=== PATIENT | male | born 1960 | race Caucasian/White ===

== ENCOUNTER 2020-02-28 13:14 | Inpatient (IN) ==
[2020-02-28] MEDS ORDERED: *HR* Promethazine 25 MG/ML VIAL IVP PRN (13:41)
[2020-02-28] MEDS ORDERED: Ondansetron 4 MG/2 ML VIAL IVP PRN ×2 (13:41→20:09)
[2020-02-28] MEDS ORDERED: *HR* Labetalol 20 MG/4 ML SYRINGE IVP PRN (13:41)
[2020-02-28] MEDS ORDERED: *HR* OxyCODONE Immed Rel 5 MG TABLET PO PRN (13:41)
[2020-02-28] MEDS ORDERED: CeFAZolin Syr 2,000MG/20 ML 2,000 MG/20 ML SYRINGE IVPB ONE (13:47)
[2020-02-28] MEDS ORDERED: *HR* FentaNYL (PF) 100 MCG/2 ML VIAL ONE (15:52)
[2020-02-28] MEDS ORDERED: *HR* Propofol 200 MG/20 ML VIAL IVP ONE (15:52)
[2020-02-28] MEDS ORDERED: *HR* Midazolam HCl 2 MG/2 ML VIAL ONE (15:52)
[2020-02-28] MEDS ORDERED: Lidocaine -MPF 2% 2 ML VIAL ONE (15:55)
[2020-02-28] MEDS ORDERED: Vancomycin 1,000 MG VIAL ONE (16:28)
[2020-02-28] MEDS ORDERED: Ethanol\\Acetic Acid\\Na Ace\\Ben 1,000 ML IRRIG.SOLN IR ONE (16:28)
[2020-02-28] MEDS ORDERED: Ropivacaine/PF 0.5% 30 ML VIAL ONE (16:38)
[2020-02-28] MEDS ORDERED: Dexamethasone 4 MG/ML VIAL ONE (17:14)
[2020-02-28] MEDS ORDERED: Ondansetron 4 MG/2 ML VIAL ONE (17:14)
[2020-02-28] MEDS ORDERED: *HR* Enoxaparin 30 MG/0.3 ML SYRINGE SQ SCH (18:00)
[2020-02-28] MEDS: *HR* HYDROmorphone (PF) 1 MG/ML SYRINGE IVP PRN ×4 (18:24→18:46)
[2020-02-28 18:31] LABS: Hematocrit 41.3 % (37.5-50.1); Hemoglobin 14.1 g/dL (12.9-16.9)
[2020-02-28] MEDS ORDERED: D5% in Water 1,000 ML IVC PRN (20:09)
[2020-02-28] MEDS ORDERED: Ringers Solution, Lactated 1,000 ML IVC SCH (20:09)
[2020-02-28] MEDS ORDERED: Dextrose Gel 15 GM/37.5 ML TUBE PO PRN ×2 (20:09)
[2020-02-28] MEDS ORDERED: Sennosides 8.6 MG TABLET PO PRN (20:09)
[2020-02-28] MEDS ORDERED: Insulin LISPRO 300 UNITS/3 ML VIAL SQ SCH ×2 (20:09→21:00)
[2020-02-28] MEDS ORDERED: MOM Conc 10 ML UD.LIQ PO PRN (20:09)
[2020-02-28] MEDS ORDERED: *HR* Dextrose 50 % in Water (Vial) 50 ML VIAL IVP PRN (20:09)
[2020-02-28] MEDS: Insulin LISPRO 300 UNITS/3 ML VIAL SQ SCH (20:55)
[2020-02-29] MEDS ORDERED: CeFAZolin 2 GM/120 ML BAG IVPB SCH
[2020-02-29 04:19] LABS: BUN/Creatinine Ratio 19 (6-26); Blood Urea Nitrogen 15 mg/dL (8-23); Carbon Dioxide 23 mEq/L (23-29); Chloride 106 mEq/L (98-107); Glucose 187 mg/dL (70-105); Osmolality,Calculated 292 (280-300); Potassium 4.2 mEq/L (3.5-5.1); Sodium 138 mEq/L (136-145); eGFR For African Americans > 60 (> 60); eGFR For Non-African Americans > 60 (> 60)
[2020-02-29 04:24] LABS: Hematocrit 45.8 % (37.5-50.1); Hemoglobin 15.5 g/dL (12.9-16.9)
[2020-02-29] MEDS ORDERED: *HR* Enoxaparin 30 MG/0.3 ML SYRINGE SQ SCH (06:00)
[2020-02-29] MEDS: Insulin LISPRO 300 UNITS/3 ML VIAL SQ SCH (09:54)
[2020-02-29 10:38] VITALS: BP 116/74
[2020-02-29] MEDS ORDERED: *HR* OxyCODONE Immed Rel 5 MG TABLET PO PRN (10:47)
== END 2020-02-29 12:56 | disposition home or self-care (01) | DRG 483 ==
LOC: SAMDAY 13:14 → 3NENU 19:56
PROVIDERS: ADMIT Orthopaedic Surgery; ATTEND Orthopaedic Surgery

== ENCOUNTER 2021-01-25 06:26 | Observation (INO) ==
[2021-01-25] MEDS ORDERED: Ondansetron ODT 4 MG TAB.RAPDIS SL ONE (06:38)
[2021-01-25] MEDS ORDERED: *HR* OxyCODONE Immed Rel 5 MG TABLET PO PRN (06:38)
[2021-01-25] MEDS ORDERED: Acetaminophen IV 1,000 MG/100 ML BAG IVPB PRN (06:38)
[2021-01-25] MEDS ORDERED: *HR* FentaNYL (PF) 100 MCG/2 ML VIAL IVP PRN (06:38)
[2021-01-25] MEDS ORDERED: *HR* Meperidine 25 MG/ML SYRINGE IVP PRN (06:38)
[2021-01-25] MEDS ORDERED: *HR* HYDROmorphone PF 0.5 MG/0.5 ML SYRINGE IVP PRN (06:38)
[2021-01-25] MEDS ORDERED: CeFAZolin Syr 2,000MG/20 ML 2,000 MG/20 ML SYRINGE IVPB ONE (06:49)
[2021-01-25] MEDS ORDERED: Ringers Solution, Lactated 1,000 ML IVC SCH (07:00)
[2021-01-25] MEDS ORDERED: Lidocaine -MPF 4% 5 ML AMPUL ONE (07:12)
[2021-01-25] MEDS ORDERED: Sugammadex Sodium 200 MG/2 ML VIAL IV ONE (07:12)
[2021-01-25] MEDS ORDERED: *HR* Rocuronium Bromide 50 MG/5 ML VIAL ONE ×2 (07:12→08:37)
[2021-01-25] MEDS ORDERED: Ondansetron 4 MG/2 ML VIAL ONE (07:12)
[2021-01-25] MEDS ORDERED: Lidocaine -MPF 2% 2 ML VIAL ONE (07:12)
[2021-01-25] MEDS ORDERED: *HR* FentaNYL (PF) 100 MCG/2 ML VIAL ONE (07:17)
[2021-01-25] MEDS ORDERED: *HR* Propofol 200 MG/20 ML VIAL IVP ONE (07:17)
[2021-01-25] MEDS ORDERED: *HR* Remifentanil 1 MG VIAL IVP ONE (07:18)
[2021-01-25] MEDS ORDERED: *HR* Phenylephrine 10 MG/ML VIAL ONE (07:18)
[2021-01-25] MEDS ORDERED: *HR* Midazolam HCl 2 MG/2 ML VIAL ONE (07:18)
[2021-01-25] MEDS ORDERED: Polymyxin B Sulfate 500,000 UNIT, Sodium Chloride IRRigation 1,000 ML IR ONE (07:45)
[2021-01-25] MEDS ORDERED: *HR* HYDROMORPHONE 2 MG/ML VIAL ONE (10:46)
[2021-01-25] MEDS: *HR* Midazolam HCl 2 MG/2 ML VIAL IVP PRN ×2 (11:37→12:08)
[2021-01-25] MEDS ORDERED: Ondansetron 4 MG/2 ML VIAL IVP PRN (12:55)
[2021-01-25] MEDS ORDERED: Acetaminophen 325 MG TABLET PO PRN (12:55)
[2021-01-25] MEDS ORDERED: Naloxone 0.4 MG/ML INJ IVP PRN (12:55)
[2021-01-25] MEDS: *HR* OxyCODONE Immed Rel 5 MG TABLET PO PRN ×3 (13:11→23:09)
[2021-01-25] MEDS: CeFAZolin 2 GM/120 ML BAG IVPB SCH ×2 (15:10→23:09)
[2021-01-25] MEDS: *HR* HYDROcodone/Acet 5/325 mg TABLET PO PRN (15:29)
[2021-01-25] MEDS: tiZANidine 4 MG TABLET PO PRN (19:33)
[2021-01-25] MEDS: Ringers Solution, Lactated 1,000 ML IVC SCH ×2 (20:47→23:14)
[2021-01-26] MEDS: tiZANidine 4 MG TABLET PO PRN ×3 (04:18→23:47)
[2021-01-26] MEDS: *HR* HYDROcodone/Acet 5/325 mg TABLET PO PRN ×2 (07:42→15:41)
[2021-01-26] MEDS ORDERED: diazePAM 2 MG TABLET PO ONE (09:32)
[2021-01-26] MEDS: *HR* OxyCODONE Immed Rel 5 MG TABLET PO PRN (11:48)
[2021-01-26] MEDS ORDERED: Ondansetron 4 MG/2 ML VIAL IVP PRN (15:48)
[2021-01-26] MEDS ORDERED: hydrOXYzine pamoate 25 MG CAPSULE PO PRN (17:52)
[2021-01-26] MEDS: diazePAM 5 MG TABLET PO PRN (18:05)
[2021-01-27] MEDS: tiZANidine 4 MG TABLET PO PRN ×2 (09:18→14:20)
[2021-01-27] MEDS ORDERED: 0.9 % Sodium Chloride 500 ML IVC ONE (15:31)
[2021-01-27] MEDS ORDERED: 0.9 % Sodium Chloride 500 ML IV ONE (15:34)
[2021-01-27] MEDS: Ringers Solution, Lactated 1,000 ML IVC SCH (16:34)
[2021-01-27 17:52] LABS: Basophils % 0.2 %; Eosinophils % 0.3 %; Hematocrit 37.8 % (37.5-50.1); Hemoglobin 12.9 g/dL (12.9-16.9); Immature Granulocytes % 0.4 % (0-4); Lymphocytes # 1.5 K/mcL (0.6-4.6); Mean Corpuscular HGB Conc 34.1 g/dL (31.6-35.5); Mean Corpuscular Hemoglobin 32.9 pg (28.0-33.3); Mean Corpuscular Volume 96.4 fL (83.0-100.0); Mean Platelet Volume 8.8 fL (9.4-12.4); Monocytes % 10.3 %; Neutrophils # 7.3 K/mcL (1.6-8.9); Platelet Count 194 K/mcL (140-400); Red Blood Count 3.92 M/mcL (4.19-5.50); Red Cell Distribution Width 11.5 % (11.5-14.5); Segmented Neutrophils % 73.8 %; White Blood Count 9.9 K/mcL (4.3-11.1)
[2021-01-27 18:02] LABS: BUN/Creatinine Ratio 17 (6-26); Blood Urea Nitrogen 14 mg/dL (8-23); Calcium 8.3 mg/dL (8.6-10.3); Carbon Dioxide 24 mEq/L (23-29); Chloride 104 mEq/L (98-107); Glucose 98 mg/dL (70-105); Osmolality,Calculated 282 (280-300); Potassium 3.6 mEq/L (3.5-5.1); Sodium 136 mEq/L (136-145); eGFR For African Americans > 60 (> 60); eGFR For Non-African Americans > 60 (> 60)
[2021-01-27] MEDS: *HR* HYDROcodone/Acet 5/325 mg TABLET PO PRN (19:25)
[2021-01-27] MEDS: *HR* OxyCODONE Immed Rel 5 MG TABLET PO PRN (21:38)
[2021-01-28] MEDS: *HR* OxyCODONE Immed Rel 5 MG TABLET PO PRN ×2 (01:55→07:05)
[2021-01-28] MEDS: tiZANidine 4 MG TABLET PO PRN ×3 (01:56→18:14)
[2021-01-28] MEDS: Ringers Solution, Lactated 1,000 ML IVC SCH (01:56)
[2021-01-28] MEDS: diazePAM 5 MG TABLET PO PRN (08:41)
[2021-01-28 10:52] VITALS: BP 108/64; PULSE 86; TEMP 99.5; O2SAT 92
== END 2021-01-28 18:29 ==
LOC: 3NENU 06:26 → SAMDAY 06:26 → 3NENU 12:50
PROVIDERS: ADMIT Orthopaedic Surgery Orthopaedic Surgery of the Spine; ATTEND Orthopaedic Surgery Orthopaedic Surgery of the Spine